=== PATIENT | male | born 1950 | race Hispanic/Latino ===

== ENCOUNTER 2021-09-21 00:53 | Emergency (ER) | payer BC, OTHER ==
[2021-09-21 12:28] LABS: SARS-CoV-2 PCR by NAA Not Detected (NotDetected)
== END 2021-09-21 02:45 | disposition home or self-care (01) ==
LOC: ERS 00:53
DX: B34.9 Viral infection, unspecified (principal); Z20.822 Contact with and (suspected) exposure to COVID-19; I10 Essential (primary) hypertension
CPT/HCPCS: 71046; 87081; 87430; U0003; U0005